=== PATIENT | female | born 1990 | race Caucasian/White ===

== ENCOUNTER 2016-05-16 13:17 | Emergency (ER) | payer OTHER ==
[2016-05-16 13:22] VITALS: BP 118/71; PULSE 102; RESP 18; TEMP 97.4
--- NOTE | 2016-05-16 13:44 | ED ---
General Adult HPI - General Chief complaint: Dental/Oral Stated complaint: dental pain Time Seen by Provider: 05/16/16 13:24 Source: patient, RN notes reviewed Mode of arrival: ambulatory Limitations: no limitations - History of Present Illness Initial comments: A 25-year-old female who presents with dental pain 5 days. Patient states she has 3 teeth that have been sore. Patient states she has noticed some pus around the teeth. Patient denies any fever/chills. Patient states she cannot get into her dentist until June 26. Patient is a smoker. Patient admits to social drinking but denies any drug use. Patient denies any swelling, nausea/ vomiting/diarrhea. Patient denies any chance of being as she started her period yesterday. Patient denies any recent shortness breath, chest pain, abdominal pain, back pain, numbness, tingling, hematuria, headache, or visual changes, or any other complaints. - Related Data Previous Rx's Medication Instructions Recorded Penicillin V Potassium [Pen Vee K] 500 mg PO BID 7 Days 05/16/16 Allergies Allergy/AdvReac Type Severity Reaction Status Date / Time codeine phosphate Allergy Nausea & Verified 05/16/16 13:22 [From Tylenol-Codeine #3] Vomiting ketorolac tromethamine Allergy Rash/Hives, Verified 05/16/16 13:22 [From Toradol] Dyspnea tramadol HCl [From Ultram] Allergy Rash/Hives, Verified 05/16/16 13:22 Dyspnea Review of Systems ROS Statement: Those systems with pertinent positive or pertinent negative responses have been documented in the HPI. ROS Other: All systems not noted in ROS Statement are negative. Past Medical History Past Medical History: No Reported History Additional Past Medical History / Comment(s): states "persistent severe stomach pain x 1 mos w/ nausea","?flea bites rt leg",cold symptoms,hx bacterial meningitis x3, HEADACHES, back pain History of Any Multi-Drug Resistant Organisms: None Reported Past Surgical History: Cholecystectomy Past Anesthesia/Blood Transfusion Reactions: No Reported Reaction Past Psychological History: Anxiety Smoking Status: Current every day smoker Past Alcohol Use History: Occasional Additional Past Alcohol Use History / Comment(s): started smoking at age 12-< 1ppd Past Drug Use History: None Reported - Past Family History Mother Family Medical History: COPD Additional Family Medical History / Comment(s): MS Father History Unknown: Yes General Exam - General Exam Comments Initial Comments: General: The patient is awake and alert, in no distress, and does not appear acutely ill. Eye: Pupils are equal, round and reactive to light, extra-ocular movements are intact. No nystagmus. There is normal conjunctiva bilaterally. No signs of icterus. Ears: TMs pink and pearly with intact cone of light bilaterally. Normal external ear canals Nose: Nasal turbinates pink and moist Mouth and throat: Teeth numbers 3 and 14 with cavities present, tooth #19 is fractured. There is no surrounding erythema, purulent drainage or sign of abscess. There is no external facial swelling. There are moist mucous membranes and no oral lesions. Neck: The neck is supple, there is no tenderness or JVD. Cardiovascular: There is a regular rate and rhythm. No murmur, rub or gallop is appreciated. Respiratory: Lungs are clear to auscultation, respirations are non-labored, breath sounds are equal. No wheezes, stridor, rales, or rhonchi. Musculoskeletal: Normal ROM, no tenderness. Strength 5/5. Sensation intact. Radial pulses equal bilaterally 2+. Neurological: A&O x 3. CN II-XII intact, There are no obvious motor or sensory deficits. Coordination appears grossly intact. Speech is normal. Skin: Skin is warm and dry and no rashes or lesions are noted. Psychiatric: Cooperative, appropriate mood & affect, normal judgment. Limitations: no limitations Course Vital Signs 05/16/16 13:20 Temperature 97.4 F L Pulse Rate 102 H Respiratory 18 Rate Blood Pressure 118/71 O2 Sat by Pulse 99 Oximetry Medical Decision Making - Medical Decision Making This is a 25-year-old female with dental pain 5 days. On physical exam teeth # 3 and 14 with cavities present, tooth #19 is fractured. There is no surrounding erythema, purulent drainage or sign of abscess. There is no external facial swelling. There are moist mucous membranes and no oral lesions. Patient is afebrile in the EC. I discussed with patient that she was on a course of Pen-Vee K. Discussed continued use of Motrin 800 that she already has at home. Patient has an ALLERGY to codeine stating it gives her rash and hives. I discussed the importance of following up with a dentist as soon as possible. Discussed return parameters. Discussed that patient should follow up with PCP in one to 2 days or return to the EC for any worsening symptoms or for any further concerns. Patient was receptive to this plan and patient will be discharged home. Disposition Clinical Impression: Pain, dental Disposition: HOME SELF-CARE Condition: Good Instructions: Toothache (ED) Additional Instructions: Please use antibiotics as prescribed. May use [id number] Tylenol or Motrin for pain. Use warm compresses to the area for pain. Please follow-up with dentist as soon as possible. [facility] dental plan: [id number] [facility] [place] [address], . [employer]: Have to pay $50 for x-rays and the rest is covered. [phone]. Please follow up with PCP tomorrow or return to the EC for any worsening symptoms or for any further concerns. Prescriptions: Penicillin V Potassium [Pen Vee K] 500 mg PO BID 7 Days Referrals: None,Stated [Primary Care Provider] - 1-2 days Dasia Gates MD [STAFF PHYSICIAN] - 1-2 days Wally Leung MD [REFERRING] - 1-2 days Time of Disposition: 13:40
== END 2016-05-16 14:00 | disposition home or self-care (01) ==
LOC: EC 13:17
DX: S02.5XXA Fracture of tooth (traumatic), initial encounter for closed fracture (principal); K02.9 Dental caries, unspecified; F17.200 Nicotine dependence, unspecified, uncomplicated; Z88.5 Allergy status to narcotic agent; Z88.8 Allergy status to other drugs, medicaments and biological substances
CPT/HCPCS: 99282

== ENCOUNTER 2016-06-18 10:54 | Emergency (ER) | payer OTHER ==
[2016-06-18] MEDS ORDERED: IBUPROFEN 600 MG TAB PO STA (11:48)
--- NOTE | 2016-06-18 11:49 | ED ---
General Adult HPI - General Chief complaint: Extremity Injury, Lower Stated complaint: Tooth/knee pain Time Seen by Provider: 06/18/16 11:00 Source: patient, RN notes reviewed Mode of arrival: ambulatory Limitations: no limitations - History of Present Illness Initial comments: This is a 25-year-old female who presents emergency Department complaining that she has left knee pain especially in the medial aspect of the knee. Patient states she already was seen for this once and they told her nothing was wrong and she twisted again yesterday and now the knee really hurts and she is unable to fully extend the knee. Patient also comes in complaining of abscessed tooth on the right upper maxilla. Patient states this started a couple days ago and has gotten progressively worse. Patient denies any fever patient denies any drainage. Patient denies any other complaints at this time - Related Data Home Medications Medication Instructions Recorded Confirmed Ibuprofen [Motrin] 200 - 400 mg PO Q6HR PRN 06/18/16 06/18/16 Previous Rx's Medication Instructions Recorded Amoxicillin 500 mg PO Q8H #30 capsule 06/18/16 Ibuprofen [Motrin] 600 mg PO Q6HR PRN #20 tab 06/18/16 Allergies Allergy/AdvReac Type Severity Reaction Status Date / Time codeine phosphate Allergy Nausea & Verified 06/18/16 11:31 [From Tylenol-Codeine #3] Vomiting ketorolac tromethamine Allergy Rash/Hives, Verified 06/18/16 11:31 [From Toradol] Dyspnea tramadol HCl [From Ultram] Allergy Rash/Hives, Verified 06/18/16 11:31 Dyspnea Review of Systems ROS Statement: Those systems with pertinent positive or pertinent negative responses have been documented in the HPI. ROS Other: All systems not noted in ROS Statement are negative. Past Medical History Past Medical History: No Reported History Additional Past Medical History / Comment(s): states "persistent severe stomach pain x 1 mos w/ nausea","?flea bites rt leg",cold symptoms,hx bacterial meningitis x3, HEADACHES, back pain History of Any Multi-Drug Resistant Organisms: None Reported Past Surgical History: Cholecystectomy Past Anesthesia/Blood Transfusion Reactions: No Reported Reaction Past Psychological History: Anxiety Smoking Status: Current every day smoker Past Alcohol Use History: Occasional Additional Past Alcohol Use History / Comment(s): started smoking at age 12-< 1ppd Past Drug Use History: None Reported - Past Family History Mother Family Medical History: COPD Additional Family Medical History / Comment(s): MS Father History Unknown: Yes General Exam - General Exam Comments Initial Comments: GENERAL Patient is well-developed and well-nourished. Patient is in mild distress. Looks in the patient's mouth that she does have an obvious abscess along the right maxilla. EYES Patient's pupils are equal and round. Extraocular motion is intact SKIN Unremarkable NEURO The patient is alert and oriented 3 PYSCH Patient has normal interpersonal interactions. MUSCULOSKELETAL Patient is unable to fully extend the left knee there is no swelling or effusion that I can see she does have significant tenderness along the medial aspect of the knee Limitations: no limitations Course Vital Signs 06/18/16 10:56 Temperature 97.5 F L Pulse Rate 99 Respiratory 20 Rate Blood Pressure 131/81 O2 Sat by Pulse 100 Oximetry Medical Decision Making - Medical Decision Making I offered to do an I&D of the abscess patient refused Disposition Clinical Impression: Abscessed tooth, Knee sprain Disposition: HOME SELF-CARE Instructions: Knee Sprain (ED) Additional Instructions: Patient should follow-up with orthopedic surgery that[facility] Patient should also follow-up with a dentist as soon as possible. Prescriptions: Amoxicillin 500 mg PO Q8H #30 capsule Ibuprofen [Motrin] 600 mg PO Q6HR PRN #20 tab PRN Reason: For pain Referrals: None,Stated [Primary Care Provider] - 1-2 days Time of Disposition: 12:50
--- NOTE | 2016-06-18 12:24 | XR ---
EXAMINATION TYPE: XR knee complete LT DATE OF EXAM: 06/18/2016 12:20 PM COMPARISON: NONE HISTORY: Pain TECHNIQUE: Four views are submitted. FINDINGS: Joint spaces are preserved. Osseous structures are intact. No acute fracture seen. IMPRESSION: 1. No acute fracture or dislocation.
[2016-06-18 13:08] VITALS: BP 111/63; PULSE 106; RESP 18; TEMP 99.5
== END 2016-06-18 13:07 | disposition home or self-care (01) ==
LOC: EC 10:54
DX: S83.92XA Sprain of unspecified site of left knee, initial encounter (principal); X50.1XXA Overexertion from prolonged static or awkward postures, initial encounter; K04.7 Periapical abscess without sinus; F17.200 Nicotine dependence, unspecified, uncomplicated; Z88.5 Allergy status to narcotic agent; Z88.8 Allergy status to other drugs, medicaments and biological substances
CPT/HCPCS: 99283

== ENCOUNTER 2016-09-06 00:10 | Emergency (ER) | payer OTHER ==
[2016-09-06] MEDS ORDERED: SODIUM CHLORIDE 0.9% 1,000 ML IV STA (00:16)
[2016-09-06] MEDS ORDERED: IBUPROFEN 600 MG TAB PO STA (00:16)
[2016-09-06] MEDS ORDERED: ACETAMINOPHEN TAB 500 MG TAB PO STA (00:16)
[2016-09-06] MEDS ORDERED: ONDANSETRON 4 MG/2 ML VIAL IVP STA (00:23)
[2016-09-06 00:45] LABS: Basophils # (A) 0.1 k/uL (0-0.2); Basophils % (A) 0 %; CH 29.8; CHCM 32.9; Eosinophils # (A) 0.3 k/uL (0-0.7); Eosinophils % (A) 2 %; HDW 2.06; HGB 14.2 gm/dL (11.4-16.0); Luc # (Auto) 0.12; Luc % (Auto) 1; Lymphocytes # (A) 0.6 k/uL (1.0-4.8); Lymphocytes % (A) 4 %; MCHC 33.1 g/dL (31.0-37.0); MCV 90.8 fL (80.0-100.0); Mean Platelet Volume 7.7; Monocytes # (A) 0.6 k/uL (0-1.0); Monocytes % (A) 4 %; Neutrophils # (A) 13.8 k/uL (1.3-7.7); Neutrophils % (A) 90 %; RBC 4.74 m/uL (3.80-5.40); RDW 13.7 % (11.5-15.5); WBC 15.4 k/uL (3.8-10.6); WBC (Perox) 16.01
[2016-09-06 00:57] LABS: ALT 32 U/L (9-52); AST 23 U/L (14-36); Alkaline Phosphatase 97 U/L (38-126); Anion Gap 12 mmol/L; Blood Urea Nitrogen 10 mg/dL (7-17); Calcium 10.1 mg/dL (8.4-10.2); Carbon Dioxide 23 mmol/L (22-30); Chloride 101 mmol/L (98-107); Glucose 118 mg/dL (74-99); Non-African American GFR(MDRD) >60 (>60 ml/min/1.73 sqM); Potassium 4.2 mmol/L (3.5-5.1); Sodium 136 mmol/L (137-145); Total Bilirubin 0.3 mg/dL (0.2-1.3); Total Protein 7.5 g/dL (6.3-8.2)
--- NOTE | 2016-09-06 01:01 | XR ---
EXAM: XR Chest, 2 Views CLINICAL HISTORY: Pain TECHNIQUE: Frontal and lateral views of the chest. COMPARISON: Chest x-ray dated 02/12/2016 FINDINGS: Lungs: Unremarkable. No consolidation. Pleural space: Unremarkable. No pneumothorax. Heart: Unremarkable. No cardiomegaly. Mediastinum: Unremarkable. Bones/joints: Unremarkable. IMPRESSION: Normal chest x-rays.
[2016-09-06] MEDS ORDERED: SODIUM CHLORIDE 0.9% 1,000 ML IV ONE (01:29)
--- NOTE | 2016-09-06 01:34 | ED ---
Fever HPI - General Chief Complaint: Fever Stated Complaint: Fever Time Seen by Provider: 09/06/16 00:16 Source: patient, RN notes reviewed, old records reviewed Mode of arrival: ambulatory Limitations: no limitations - History of Present Illness Initial Comments: This is a 25-year-old female presenting to the emergency department with chief complaint of sore throat, fever and mild cough for the past day. Patient arrives emergency department with a fever 102.5. She reports that she took Motrin Tylenol 5 hours ago. She states she has diffuse body aches and feels like she was ran over by a truck. She reports she did have one episode of vomiting today. Denies any specific abdominal pain. She reports that she recently got over her menstrual cycle 2 days ago, denies any chance of . She states that she felt fine up until today. Patient denies any history of sick contacts. She reports she received childhood vaccinations. She does state that she had a history of meningitis when she was a child. She denies any blurry vision or changes in vision. She states that she does have a mild headache and it's worse when she coughs.Patient denies any recent chest pain, abdominal pain, nausea vomiting, numbness or tingling, dysuria or hematuria, constipation or diarrhea, headaches or visual changes, or any other current symptoms - Related Data Previous Rx's Medication Instructions Recorded Acetaminophen Tab [Tylenol Tab] 650 mg PO Q6H #20 tablet 09/06/16 Ibuprofen [Motrin] 600 mg PO Q6HR PRN #20 tab 09/06/16 Allergies Allergy/AdvReac Type Severity Reaction Status Date / Time codeine phosphate Allergy Nausea & Verified 09/06/16 00:15 [From Tylenol-Codeine #3] Vomiting ketorolac tromethamine Allergy Rash/Hives, Verified 09/06/16 00:15 [From Toradol] Dyspnea tramadol HCl [From Ultram] Allergy Rash/Hives, Verified 09/06/16 00:15 Dyspnea Review of Systems ROS Statement: Those systems with pertinent positive or pertinent negative responses have been documented in the HPI. ROS Other: All systems not noted in ROS Statement are negative. Past Medical History Past Medical History: No Reported History Additional Past Medical History / Comment(s): states "persistent severe stomach pain x 1 mos w/ nausea","?flea bites rt leg",cold symptoms,hx bacterial meningitis x3, HEADACHES, back pain History of Any Multi-Drug Resistant Organisms: None Reported Past Surgical History: Cholecystectomy Past Anesthesia/Blood Transfusion Reactions: No Reported Reaction Past Psychological History: Anxiety Smoking Status: Current every day smoker Past Alcohol Use History: Occasional Additional Past Alcohol Use History / Comment(s): started smoking at age 12-< 1ppd Past Drug Use History: None Reported - Past Family History Mother Family Medical History: COPD Additional Family Medical History / Comment(s): MS Father History Unknown: Yes General Exam - General Exam Comments Initial Comments: This is a ill-appearing 25-year-old female. Patient is tachycardic and to Neck related to her fever. Limitations: no limitations General appearance: alert, in no apparent distress Head exam: Present: atraumatic, normocephalic, normal inspection Eye exam: Present: normal appearance, PERRL, EOMI. Absent: scleral icterus, conjunctival injection, periorbital swelling ENT exam: Present: normal exam, mucous membranes moist. Absent: normal oropharynx (Erythematous oropharynx. No evidence of exudate.) Neck exam: Present: normal inspection. Absent: tenderness, meningismus, lymphadenopathy Respiratory exam: Present: normal lung sounds bilaterally. Absent: respiratory distress, wheezes, rales, rhonchi, stridor Cardiovascular Exam: Present: regular rate, normal rhythm, normal heart sounds. Absent: systolic murmur, diastolic murmur, rubs, gallop, clicks GI/Abdominal exam: Present: soft, normal bowel sounds. Absent: distended, tenderness, guarding, rebound, rigid Extremities exam: Present: normal inspection, full ROM, normal capillary refill. Absent: tenderness, pedal edema, joint swelling, calf tenderness Back exam: Present: normal inspection Neurological exam: Present: alert, oriented X3, CN II-XII intact Psychiatric exam: Present: normal affect, normal mood Skin exam: Present: warm, dry, intact, normal color. Absent: rash Course Vital Signs 09/06/16 09/06/16 09/06/16 00:13 01:25 02:26 Temperature 102.5 F H 101.9 F H 100.8 F H Pulse Rate 129 H 129 H 121 H Respiratory 26 H 18 18 Rate Blood Pressure 132/68 127/67 O2 Sat by Pulse 98 99 100 Oximetry 09/06/16 09/06/16 02:58 03:14 Temperature 100.1 F H Pulse Rate 109 H 108 H Respiratory 20 Rate Blood Pressure 112/59 O2 Sat by Pulse 94 L Oximetry Medical Decision Making - Medical Decision Making Is an ill-appearing 25-year-old female. She reports that she's had a sore throat and bodyaches and fever for the past day. She also reports a mild cough. She was emergency department with a fever 102.5, tachycardic at 1 29 bpm , tachypnea get 26 breaths per minute. Patient received I am Motrin Tylenol and was started on IV fluids. Patient rapid strep and influenza are negative. White count is elevated 15.4. She does have a positive heterophile consistent with mononucleosis. Patient was informed of these results. Patient was reevaluated after 1 L of fluids and still tachycardic. Patient will receive a second liter of fluids and be reevaluated. She is resting more comfortably and sleeping in bed at this time. Chest x-ray was also obtained and negative for any acute process. She had a negative lactic acid. Patient's heart rate did come down to 108 on discharge. Patient understands the importance of avoiding a saline contact sports or any trauma to the left rib cage due to her spleen. Also instructed her to follow-up closely with a primary care provider. Patient started treatment plan will comply. - Lab Data Result diagrams: 09/06/16 00:18 09/06/16 00:18 Lab Results 09/06/16 09/06/16 09/06/16 Range/Units 00:18 00:18 00:18 WBC 15.4 H (3.8-10.6) k/uL RBC 4.74 (3.80-5.40) m/uL Hgb 14.2 (11.4-16.0) gm/dL Hct 43.0 (34.0-46.0) % MCV 90.8 (80.0-100.0) fL MCH 30.0 (25.0-35.0) pg MCHC 33.1 (31.0-37.0) g/dL RDW 13.7 (11.5-15.5) % Plt Count 207 (150-450) k/uL Neutrophils % 90 % Lymphocytes % 4 % Monocytes % 4 % Eosinophils % 2 % Basophils % 0 % Neutrophils # 13.8 H (1.3-7.7) k/uL Lymphocytes # 0.6 L (1.0-4.8) k/uL Monocytes # 0.6 (0-1.0) k/uL Eosinophils # 0.3 (0-0.7) k/uL Basophils # 0.1 (0-0.2) k/uL Sodium 136 L (137-145) mmol/L Potassium 4.2 (3.5-5.1) mmol/L Chloride 101 (98-107) mmol/L Carbon Dioxide 23 (22-30) mmol/L Anion Gap 12 mmol/L BUN 10 (7-17) mg/dL Creatinine 0.70 (0.52-1.04) mg/dL Est GFR (MDRD) Af Amer >60 (>60 ml/min/1.73 sqM) Est GFR (MDRD) Non-Af >60 (>60 ml/min/1.73 sqM) Glucose 118 H (74-99) mg/dL Plasma Lactic Acid Liban (0.7-2.0) mmol/L Calcium 10.1 (8.4-10.2) mg/dL Total Bilirubin 0.3 (0.2-1.3) mg/dL AST 23 (14-36) U/L ALT 32 (9-52) U/L Alkaline Phosphatase 97 (38-126) U/L Total Protein 7.5 (6.3-8.2) g/dL Albumin 4.8 (3.5-5.0) g/dL Heterophile Antibody Positive (Negative) Influenza Type A RNA (Not Detectd) Influenza Type B (PCR) (Not Detectd) Group A Strep Rapid (Negative) 09/06/16 09/06/16 09/06/16 Range/Units 00:18 00:18 00:18 WBC (3.8-10.6) k/uL RBC (3.80-5.40) m/uL Hgb (11.4-16.0) gm/dL Hct (34.0-46.0) % MCV (80.0-100.0) fL MCH (25.0-35.0) pg MCHC (31.0-37.0) g/dL RDW (11.5-15.5) % Plt Count (150-450) k/uL Neutrophils % % Lymphocytes % % Monocytes % % Eosinophils % % Basophils % % Neutrophils # (1.3-7.7) k/uL Lymphocytes # (1.0-4.8) k/uL Monocytes # (0-1.0) k/uL Eosinophils # (0-0.7) k/uL Basophils # (0-0.2) k/uL Sodium (137-145) mmol/L Potassium (3.5-5.1) mmol/L Chloride (98-107) mmol/L Carbon Dioxide (22-30) mmol/L Anion Gap mmol/L BUN (7-17) mg/dL Creatinine (0.52-1.04) mg/dL Est GFR (MDRD) Af Amer (>60 ml/min/1.73 sqM) Est GFR (MDRD) Non-Af (>60 ml/min/1.73 sqM) Glucose (74-99) mg/dL Plasma Lactic Acid Liban 1.3 (0.7-2.0) mmol/L Calcium (8.4-10.2) mg/dL Total Bilirubin (0.2-1.3) mg/dL AST (14-36) U/L ALT (9-52) U/L Alkaline Phosphatase (38-126) U/L Total Protein (6.3-8.2) g/dL Albumin (3.5-5.0) g/dL Heterophile Antibody (Negative) Influenza Type A RNA Not Detected (Not Detectd) Influenza Type B (PCR) Not Detected (Not Detectd) Group A Strep Rapid Negative (Negative) - Radiology Data Radiology results: report reviewed Chest x-ray is negative for any acute process. Disposition Clinical Impression: Mononucleosis, Fever Disposition: HOME SELF-CARE Condition: Good Instructions: Mononucleosis (ED), Fever in Adults (ED) Additional Instructions: Patient advised to rest, increase fluids. Patient needs to alternate between Motrin and Tylenol every 4 hours. Patient should rest as much as possible. Avoid any contact or physicals reports for the next 2 months. Patient advised to follow-up with her primary care provider within the next 2-3 days. Patient is advised to return the emergency department if any alarming signs or symptoms occur. Prescriptions: Acetaminophen Tab [Tylenol Tab] 650 mg PO Q6H #20 tablet Ibuprofen [Motrin] 600 mg PO Q6HR PRN #20 tab PRN Reason: Fever Referrals: Dasia Gates MD [STAFF PHYSICIAN] - 1-2 days Time of Disposition: 03:00
[2016-09-06 03:15] VITALS: BP 112/59; PULSE 108; RESP 20; TEMP 100.1
== END 2016-09-06 03:15 | disposition home or self-care (01) ==
LOC: EC 00:10
DX: B27.90 Infectious mononucleosis, unspecified without complication (principal); R00.0 Tachycardia, unspecified; R05 Cough; R11.10 Vomiting, unspecified; F17.200 Nicotine dependence, unspecified, uncomplicated; Z88.5 Allergy status to narcotic agent; Z88.6 Allergy status to analgesic agent
CPT/HCPCS: 36415; 80053; 83605; 85025; 86308; 87040; 87081; 87430; 87502; 71020; 99284; 96374; 96361; J2405

== ENCOUNTER 2016-10-01 14:45 | Emergency (ER) | payer OTHER ==
[2016-10-01 14:57] VITALS: BP 114/73; PULSE 105; RESP 20; TEMP 98.9
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
== END 2016-10-01 15:18 | disposition home or self-care (01) ==
LOC: EC 14:45
DX: K08.89 Other specified disorders of teeth and supporting structures (principal); R22.0 Localized swelling, mass and lump, head; R50.9 Fever, unspecified; F17.200 Nicotine dependence, unspecified, uncomplicated; Z88.5 Allergy status to narcotic agent; Z88.6 Allergy status to analgesic agent
CPT/HCPCS: 99282

== ENCOUNTER 2018-05-28 00:36 | Emergency (ER) | payer OTHER ==
[2018-05-28 00:44] VITALS: TEMP 98.5
[2018-05-28] MEDS ORDERED: BUPIVACAIN-EPI 0.25%-1:200,000 30 ML VIAL SQ STA (00:52)
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
[2018-05-28] MEDS ORDERED: BUPIVACAINE (PF) 0.25% 30 ML VIAL SQ STA (01:09)
[2018-05-28] MEDS ORDERED: HYDROcodone/APAP 5-325MG 1 EACH TAB PO STA (01:19)
[2018-05-28] MEDS ORDERED: PENICILLIN VK 500MG STARTER 4 TAB BTL PO STA (01:24)
[2018-05-28 01:51] VITALS: BP 124/86; PULSE 87; RESP 18
== END 2018-05-28 02:15 | disposition home or self-care (01) ==
LOC: EC 00:36
DX: K03.81 Cracked tooth (principal); K02.9 Dental caries, unspecified; F17.200 Nicotine dependence, unspecified, uncomplicated; Z88.5 Allergy status to narcotic agent; Z88.6 Allergy status to analgesic agent
CPT/HCPCS: 64400; 99282

== ENCOUNTER 2019-08-11 20:37 | Emergency (ER) | payer OTHER ==
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
--- NOTE | 2019-08-11 21:53 | XR ---
EXAMINATION TYPE: XR abdomen 1V DATE OF EXAM: 08/11/2019 COMPARISON: 12/17/2015 HISTORY: Constipation. Abdominal pain. TECHNIQUE: FINDINGS: 2 views upright were obtained. There are clips from cholecystectomy. There is no sign of in testinal obstruction or pneumoperitoneum. Fecal pattern is fairly normal. Lung bases are clear. There are no pathologic calcifications over the kidneys. IMPRESSION: Nonacute abdomen. There is decreased fecal material compared to last exam.
[2019-08-11] MEDS ORDERED: NA PHOS,M-B/NA PHOS,DI-BA 133 ML ENEMA RECTAL ONE (22:15)
[2019-08-11 22:55] VITALS: BP 113/67; PULSE 91; RESP 16; TEMP 98.1
== END 2019-08-11 23:01 | disposition home or self-care (01) ==
LOC: EC 20:37 → SUPCPDRO 20:37 → EC 23:01
DX: K59.00 Constipation, unspecified (principal); F17.200 Nicotine dependence, unspecified, uncomplicated; Z88.5 Allergy status to narcotic agent; Z88.6 Allergy status to analgesic agent; Z90.49 Acquired absence of other specified parts of digestive tract
CPT/HCPCS: 74018; 99283

== ENCOUNTER 2020-02-02 09:14 | Emergency (ER) | payer OTHER ==
[2020-02-02 09:21] VITALS: BP 116/82; TEMP 98
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
[2020-02-02 10:18] VITALS: PULSE 101; RESP 16
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
== END 2020-02-02 10:47 | disposition home or self-care (01) ==
LOC: EC 09:14
DX: S80.01XA Contusion of right knee, initial encounter (principal); M54.2 Cervicalgia; I10 Essential (primary) hypertension; F17.200 Nicotine dependence, unspecified, uncomplicated; Z79.899 Other long term (current) drug therapy; Z88.5 Allergy status to narcotic agent; Z88.6 Allergy status to analgesic agent; V43.52XA Car driver injured in collision with other type car in traffic accident, initial encounter; Y92.410 Unspecified street and highway as the place of occurrence of the external cause
CPT/HCPCS: 70450; 71046; 72125; 99284

== ENCOUNTER 2024-10-25 17:24 | Emergency (ER) | payer OTHER ==
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
[2024-10-25 18:26] LABS: Basophils # (A) 0.04 10*3/uL (0.00-0.10); Basophils % (A) 0.3 %; Eosinophils # (A) 0.00 10*3/uL (0.04-0.35); Eosinophils % (A) 0.0 %; HCT 40.5 % (37.2-46.3); HGB 13.6 g/dL (12.0-15.0); Lymphocytes # (A) 1.14 10*3/uL (0.90-5.00); Lymphocytes % (A) 7.7 %; MCH 28.5 pg (27.0-32.0); MCHC 33.6 g/dL (32.0-37.0); MCV 84.7 fL (80.0-97.0); Monocytes # (A) 1.21 10*3/uL (0.20-1.00); Monocytes % (A) 8.1 %; Neutrophils # (A) 12.41 10*3/uL (1.80-7.70); Neutrophils % (A) 83.4 %; Platelet Count 237 10*3/uL (140-440); RBC 4.78 10*6/uL (4.10-5.20); RDW 12.8 % (11.5-14.5); WBC 14.87 10*3/uL (4.50-10.00)
[2024-10-25 18:35] LABS: Bacteria,Urine Rare /hpf; Bilirubin,Urine Negative (Negative); Blood,Urine Moderate (Negative); Color,Urine Yellow; Glucose,Urine (UA) Negative (Negative); Ketones,Urine Negative (Negative); Leukocyte Esterase,Urine Large (Negative); Mucus,Urine Rare /hpf; Nitrite,Urine Negative (Negative); PH, Urine 6.5 (5.0-8.0); Protein,Urine 2+ (Negative); RBC,Urine 33 /hpf (0-5); Specific Gravity,Urine 1.017 (1.001-1.035); Squamous Epithelial Cell,Urine 17 /hpf (0-4); Urobilinogen,Urine 2.0 mg/dL (<2.0); WBC,Urine >182 /hpf (0-5)
[2024-10-25 18:39] LABS: ALT 36 U/L (4-34); AST 36 U/L (14-36); African American GFR (CKD) >90 (>60 ml/min/1.73 sqM); Albumin 4.5 g/dL (3.5-5.0); Alkaline Phosphatase 136 U/L (38-126); Amylase 39 U/L (30-110); Anion Gap 16 mmol/L; Blood Urea Nitrogen 12 mg/dL (7-17); Calcium 9.2 mg/dL (8.4-10.2); Carbon Dioxide 25 mmol/L (22-30); Chloride 96 mmol/L (98-107); Glucose 127 mg/dL (74-99); Lipase 22 U/L (23-300); Non-African American GFR(CKD) 84 (>60 ml/min/1.73 sqM); Potassium 4.0 mmol/L (3.5-5.1); Sodium 137 mmol/L (137-145); Total Protein 8.0 g/dL (6.3-8.2)
[2024-10-25] MEDS: HYDROmorphone 0.5 MG/0.5 ML SYRINGE IVP STA (19:09)
[2024-10-25] MEDS: ONDANSETRON 4 MG/2 ML VIAL IVP STA (19:09)
[2024-10-25] MEDS: SODIUM CHLORIDE 0.9% 1,000 ML IV ONE (19:10)
--- NOTE | 2024-10-25 19:29 | CT ---
EXAMINATION TYPE: CT abdomen pelvis wo con DATE OF EXAM: 10/25/2024 7:08 PM COMPARISON: CT abdomen pelvis most recent from 01/02/2016 CLINICAL INDICATION: Female, 34 years old with history of L flank pain, UA sx; left flank pain TECHNIQUE: Axial CT abdomen pelvis wo con;Sagittal and coronal reformats were created on a separate workstation. Contrast used: mL of , (none if empty) Oral contrast used: without Oral Contrast (none if empty) CT DLP: 751.1 mGycm, Automated exposure control for dose reduction was used. FINDINGS: LOWER CHEST: Unremarkable ABDOMEN LIVER: Diffusely hypoattenuating parenchyma. GALLBLADDER AND BILE DUCTS: The gallbladder is surgically absent. PANCREAS: Unremarkable. SPLEEN: Enlarged measuring up to 13.8 cm. ADRENAL GLANDS: Unremarkable. KIDNEYS AND URETERS: Mild left hydroureteronephrosis. No obstructing calculus visualized. No right re nal calculi or right hydronephrosis. PELVIS BLADDER: Incompletely distended. Mild bladder wall thickening. No evidence for wall thickening or mas s given limitations of exam. REPRODUCTIVE: Unremarkable. ABDOMEN & PELVIS STOMACH AND BOWEL: No evidence of bowel obstruction. Appendix is normal. Large stool burden throughou t the colon. PERITONEUM/RETROPERITONEUM: No evidence of pneumoperitoneum or free fluid. VASCULATURE: No evidence of aortic aneurysm. MUSCULOSKELETAL: No acute osseous abnormalities LYMPH NODES: No gross evidence for lymphadenopathy. SOFT TISSUE/ABDOMINAL WALL: Unremarkable IMPRESSION: 1. Mild left hydroureteronephrosis no obstructing calculus visualized. Correlate for recently passed stone. Mild bladder wall thickening is present for cystitis/ascending infection. Appendix is normal. 2. Hepatic steatosis. 3. Cholecystectomy changes. 4. Mild splenomegaly. [facility], , 10/25/2024 7:27 PM
[2024-10-25] MEDS: cefTRIAXone IN SWFI 1,000 MG/10 ML SYRINGE IVP STA (19:49)
[2024-10-25 19:55] VITALS: BP 126/84; PULSE 88; RESP 16; TEMP 98.9
== END 2024-10-25 19:59 | disposition home or self-care (01) ==
LOC: EC 17:24
DX: N12 Tubulo-interstitial nephritis, not specified as acute or chronic (principal); F17.200 Nicotine dependence, unspecified, uncomplicated; Z88.5 Allergy status to narcotic agent; Z88.6 Allergy status to analgesic agent
CPT/HCPCS: 36415; 80053; 82150; 83605; 83690; 85025; 81001; 81025; 87086; 74176; 99284; 96374; 96375; 96361; J2405; J0696; J1171